=== PATIENT | female | born 2000 | race African-American/Black ===

== ENCOUNTER 2025-06-25 00:28 | Emergency (ER) | payer OTHER, BC ==
[~2025-06-25] VITALS: Ht 157.5 cm; Wt 115.5 kg
[2025-06-25 00:30] VITALS: TEMP 97.8
[2025-06-25 03:37] LABS: PLATELET COUNT, AUTOMATED 348 10^3/uL (150-450)
[2025-06-25 03:58] LABS: ALT/SGPT 21 U/L (7.0-40); AST/SGOT 20 U/L (<34); CALCIUM LEVEL 9.1 MG/DL (8.5-10.1); CARBON DIOXIDE LEVEL 25 MMOL/L (20-31); CHLORIDE LEVEL 107 MMOL/L (98-107); CREATININE FOR GFR 0.76 MG/DL (0.55-1.30); GLOMERULAR FILTRATION RATE > 90.0 (>60); POTASSIUM SERUM 4.5 MMOL/L (3.5-5.1); SODIUM LEVEL 142 MMOL/L (136-145)
[2025-06-25 04:00] VITALS: BP 97/60
[2025-06-25 04:10] LABS: HCG, SERUM QUALITATIVE NEGATIVE (NEGATIVE)
[2025-06-25 04:15] VITALS: O2SAT 98
[2025-06-25 04:15] LABS: ATYPICAL LYMPH 13 % (0-5); EOSINOPHILS 2 % (0-3); LYMPHOCYTES 34 % (16-44); MONOCYTES 3 % (0-5); NEUTROPHILS 48 % (28-66)
[2025-06-25 04:16] LABS: PLATELET ESTIMATE NORMAL (NORMAL)
== END 2025-06-25 04:20 | disposition left against medical advice (07) ==
LOC: M ED 00:28
DX: Z53.21 Procedure and treatment not carried out due to patient leaving prior to being seen by health care provider (principal)